=== PATIENT | male | born 1930 | race Caucasian/White ===

== ENCOUNTER → 2017-06-24 | Outpatient (CLI) | payer OTHER ==
[~2017-06-24] MED LIST: ASPIR 8181 M1 PO; BP PO; CRESTOR PO; CRESTOR20 MG PO; FIBERCON625 MG PO; LISINOPRIL PO; METAMUCIL0.52 GM PO; MULTIVITAMIN1 EAC2 PO; TRICOR PO; TRICOR145 MG PO; ZESTORETIC,P1 TABLE1 PO
[2017-06-24 10:14] LABS: HEMATOCRIT 31.8 % (38.0-50.0); MCH 36.4 PG (29.0-34.0); MCHC 35.2 G/DL (30.0-36.0); MCV 103.2 FL (86-99); MEAN PLAT.VOLUME 11.1 uM^3 (9.0-12.4); PLATELET COUNT 160 K/uL (156-360); RBC DIS.WIDTH-CV 13.6 % (11.8-14.6); RBC DIS.WIDTH-SD 51.8 % (39-53); RED BLOOD COUNT 3.08 M/uL (4.00-5.50); WHITE BLOOD COUNT 2.1 K/uL (4.1-10.2)
[2017-06-24 11:16] LABS: ABS NEUTROPHIL COUNT 1.1; ANISOCYTOSIS 1+; ATYPICAL LYMPHOCYTE 5.2 %; BASOPHILS 4.3 %; EOSINOPHIL ABS CT 0.1; EOSINOPHILS 5.2 % (0-5.0); GIANT PLATELETS 2+; MACROCYTES 2+; NUCLEATED RBC'S 0.9; OVALOCYTES 1+; PLAT.SUFFICIENCY ADEQUATE; POIKILOCYTOSIS 1+; SEG.NEUTROPHILS 52.6 % (46.0-76.0)
== END | disposition home or self-care (01) ==
LOC: OPR 09:22 → EDSTATUS 10:00 → OPR 10:00
PROVIDERS: Internal Medicine
DX: D72.819 Decreased white blood cell count, unspecified (principal); D64.9 Anemia, unspecified; I10 Essential (primary) hypertension; E78.5 Hyperlipidemia, unspecified; I25.2 Old myocardial infarction; E11.9 Type 2 diabetes mellitus without complications; Z79.82 Long term (current) use of aspirin
CPT/HCPCS: 77012; 85007; 85027; J3010